=== PATIENT | male | born 1975 | race Caucasian/White ===

== ENCOUNTER 2017-01-04 04:25 | Emergency (ER) | payer OTHER ==
[~2017-01-04] VITALS: Ht 185.4 cm; Wt 100.0 kg
[~2017-01-04 04:25] MED LIST: ATIVAN2 MG PO; COZAAR 50MG50 MG/TAB; INDERAL 10MG10 MG; PEPCID20 M1 PO; PROZAC10 M1; ULTRAM 50MG TAB50 MG; XANAX 1MG1 MG PO
[2017-01-04] MEDS ORDERED: ALPRAZOLAM1 MG PO (04:33)
[2017-01-04 05:59] VITALS: BP 145/96
== END 2017-01-04 05:53 | disposition home or self-care (01) ==
LOC: ED 04:25
DX: S09.90XA Unspecified injury of head, initial encounter (principal); S01.01XA Laceration without foreign body of scalp, initial encounter; F10.20 Alcohol dependence, uncomplicated; W19.XXXA Unspecified fall, initial encounter